=== PATIENT | male | born 1970 | race Caucasian/White ===

== ENCOUNTER 2016-05-14 14:57 | Emergency (ER) | payer OTHER ==
[~2016-05-14] VITALS: Ht 172.7 cm; Wt 82.3 kg
[~2016-05-14 14:57] MED LIST: ASPI81CH43 PO; Atorvastatin Calcium PO; CIPR-173 PO; ENA10T PO; INSLANTI SC; INSUINJ IJ; MET25T PO; Metronidazole PO
[2016-05-14 16:25] LABS: Basophils # (auto) 0 uL; Basophils % (auto) 0.3 % (0.0-2.0); Eosinophils # (auto) 0.3 uL; Eosinophils % (auto) 2.1 % (0.0-7.0); Hematocrit 39.5 % (41.0-53.0); Hemoglobin 12.7 g/dL (13.5-17.5); Lymphocytes # (auto) 2.3 uL; Lymphocytes % (auto) 17.4 % (10.0-50.0); Mean Corpuscular Hemoglobin 28.5 pg (28.0-32.0); Mean Corpuscular Hgb Conc. 32.2 g/dL (32.0-36.0); Mean Corpuscular Volume 88.6 fL (80.0-100.0); Monocytes # (auto) 0.7 uL; Monocytes % (auto) 5.4 % (0.0-12.0); Neutrophils % (auto) 74.8 % (37.0-80.0); Platelet Count (auto) 365 10^3/uL (140-450); White Blood Cell 13.3 10^3/uL (4.4-10.8)
[2016-05-14 16:46] LABS: Albumin 3.9 g/dL (3.4-5.0); Calcium 8.7 mg/dL (8.5-10.1); Potassium 4.3 mmol/L (3.5-5.1)
[2016-05-14 16:49] LABS: Bilirubin, Total 0.4 mg/dL (0.2-1.0); Total Protein 7.6 g/dL (6.4-8.2)
[2016-05-15] MEDS ORDERED: SODIUM CHLORIDE 0.9% 1,000 ML IV ONE (08:51)
[2016-05-15] MEDS ORDERED: InsuLIN REG 1unit/0.01ml Soln (100units/ml) IV ONE (09:00)
[2016-05-15] MEDS ORDERED: cefTRIAXone 1GM/50ML D5W 50 ML IV ONE (09:00)
[2016-05-15 12:23] VITALS: BP 152/77
== END 2016-05-15 11:43 | disposition home or self-care (01) ==
LOC: EEVIPCON 15:21 → ER 15:21
DX: E11.621 Type 2 diabetes mellitus with foot ulcer (principal); Z89.421 Acquired absence of other right toe(s)
CPT/HCPCS: 36415; 80053; 82962; 85025; 96365; 96375; 99284; J0696; J7030

== ENCOUNTER 2016-06-30 14:37 | Inpatient (IN) | payer SELFPAY ==
[~2016-06-30] VITALS: Ht 170.2 cm; Wt 78.6 kg
[~2016-06-30 14:37] MED LIST changes: -ASPI81CH43 PO; -Atorvastatin Calcium PO; -CIPR-173 PO; -ENA10T PO; -MET25T PO; -Metronidazole PO
[2016-06-30 16:09] LABS: INR 0.93 (0.9-1.15); Partial Thromboplastin Time 27.7 sec (22.64-33.71)
[2016-06-30 16:30] LABS: Basophils # (auto) 0.1 uL; Basophils % (auto) 0.6 % (0.0-2.0); Eosinophils # (auto) 0.4 uL; Eosinophils % (auto) 3.5 % (0.0-7.0); Hemoglobin 13.3 g/dL (13.5-17.5); Lymphocytes # (auto) 2.5 uL; Lymphocytes % (auto) 21.2 % (10.0-50.0); Mean Corpuscular Hgb Conc. 33.2 g/dL (32.0-36.0); Mean Corpuscular Volume 87.3 fL (80.0-100.0); Mean Platelet Volume 9.4 fL (7.4-10.4); Monocytes # (auto) 0.5 uL; Monocytes % (auto) 4.6 % (0.0-12.0); Neutrophils # (auto) 8.4 uL; Neutrophils % (auto) 70.1 % (37.0-80.0); Platelet Count (auto) 361 10^3/uL (140-450); Red Cell Distribution Width 11.7 % (11.6-16.0); White Blood Cell 11.9 10^3/uL (4.4-10.8)
[2016-06-30] MEDS ORDERED: SODIUM CHLORIDE 0.9% 1,000 ML IV ONE (18:30)
[2016-06-30 20:50] LABS: Albumin 3.8 g/dL (3.4-5.0); BUN/Creatinine Ratio 15.1; Potassium 4.3 mmol/L (3.5-5.1)
[2016-06-30 20:53] LABS: Bilirubin, Total 0.3 mg/dL (0.2-1.0); Total Protein 7.4 g/dL (6.4-8.2)
[2016-06-30] MEDS ORDERED: ACETAMINOPHEN 325 MG TAB PO PRN (21:45)
[2016-06-30] MEDS ORDERED: DEXTROSE (50%) 50ML SYRG IV PRN (21:45)
[2016-06-30] MEDS ORDERED: HYDROcodone-ACET 5/325MG TAB PO PRN (21:45)
[2016-06-30] MEDS ORDERED: cloNIDine HCL 0.1 MG TAB PO PRN (21:45)
[2016-06-30] MEDS ORDERED: ONDANSETRON HCL 4 MG/2 ML VIAL IV PRN (21:45)
[2016-06-30] MEDS: ENOXAPARIN SOD 30 MG/0.3 ML SYRINGE SC SCH (23:13)
[2016-06-30] MEDS: FAMOTIDINE 20 MG TAB PO SCH (23:13)
[2016-06-30] MEDS: CLINDAMYCIN 600MG IV 50 ML IV SCH (23:13)
[2016-06-30] MEDS: ACCU-CHEK COMFORT CURVE STRIP VI SCH (23:54)
[2016-06-30] MEDS: InsuLIN REG 1unit/0.01ml Soln (100units/ml) SC SCH (23:54)
[2016-07-01] VITALS (8 sets, daily range): BP systolic 122–139; BP diastolic 68–86
[2016-07-01 05:32] LABS: Basophils # (auto) 0.1 uL; Basophils % (auto) 0.6 % (0.0-2.0); Eosinophils # (auto) 0.4 uL; Eosinophils % (auto) 4.2 % (0.0-7.0); Hematocrit 36.5 % (41.0-53.0); Lymphocytes # (auto) 3.2 uL; Lymphocytes % (auto) 31.2 % (10.0-50.0); Mean Corpuscular Hemoglobin 29.1 pg (28.0-32.0); Mean Corpuscular Hgb Conc. 32.8 g/dL (32.0-36.0); Mean Corpuscular Volume 88.6 fL (80.0-100.0); Mean Platelet Volume 8.3 fL (7.4-10.4); Monocytes # (auto) 0.6 uL; Monocytes % (auto) 6.1 % (0.0-12.0); Neutrophils % (auto) 57.9 % (37.0-80.0); Platelet Count (auto) 336 10^3/uL (140-450); Red Cell Distribution Width 12.4 % (11.6-16.0); White Blood Cell 10.4 10^3/uL (4.4-10.8)
[2016-07-01] MEDS: CLINDAMYCIN 600MG IV 50 ML IV SCH ×3 (05:58→21:42)
[2016-07-01 06:04] LABS: Albumin 3.1 g/dL (3.4-5.0); BUN/Creatinine Ratio 21.4; Bilirubin, Total 0.4 mg/dL (0.2-1.0); Calcium 8.3 mg/dL (8.5-10.1); Potassium 3.7 mmol/L (3.5-5.1); Total Protein 6.3 g/dL (6.4-8.2)
[2016-07-01] MEDS: InsuLIN REG 1unit/0.01ml Soln (100units/ml) SC SCH ×4 (06:08→23:59)
[2016-07-01] MEDS: ACCU-CHEK COMFORT CURVE STRIP VI SCH ×4 (06:08→23:59)
[2016-07-01] MEDS: FAMOTIDINE 20 MG TAB PO SCH ×2 (10:00→21:42)
[2016-07-01] MEDS: ENOXAPARIN SOD 30 MG/0.3 ML SYRINGE SC SCH (10:00)
[2016-07-01] MEDS ORDERED: ceFAZolin 1GM/50ML D5W 50 ML IV ONE (11:18)
[2016-07-01] MEDS ORDERED: BUPIVACAINE 0.75% INJ 10ML MPV SDV IJ ONE (13:22)
[2016-07-01] MEDS ORDERED: MIDAZOLAM HCL 1MG/1ML-2 ML VIAL ONE (13:39)
[2016-07-01] MEDS ORDERED: PROPOFOL 10 MG/ML 20 ML IV ONE (13:39)
[2016-07-01] MEDS ORDERED: fentaNYL CITRATE 100 MCG/2 ML VL ONE (13:39)
[2016-07-01] MEDS ORDERED: cefTRIAXone 1GM/50ML D5W 50 ML IV ONE ×2 (14:15→14:20)
[2016-07-01] MEDS ORDERED: ePHEDrine SULFATE 50 MG/ML AMP IV PRN (14:15)
[2016-07-01] MEDS ORDERED: hydrALAZINE HCL 20 MG/ML VL IV PRN (14:15)
[2016-07-01] MEDS ORDERED: ONDANSETRON HCL 4 MG/2 ML VIAL IV ONE (14:15)
[2016-07-01] MEDS ORDERED: fentaNYL CITRATE 100 MCG/2 ML VL IV ONE (15:00)
[2016-07-01] MEDS: Boost Glucose Control 8 Ounces PO SCH (17:45)
[2016-07-02] MEDS: InsuLIN REG 1unit/0.01ml Soln (100units/ml) SC SCH ×4 (05:58→23:19)
[2016-07-02] MEDS: CLINDAMYCIN 600MG IV 50 ML IV SCH ×3 (05:58→22:32)
[2016-07-02] MEDS: ACCU-CHEK COMFORT CURVE STRIP VI SCH ×4 (05:58→23:11)
[2016-07-02 05:59] LABS: Basophils # (auto) 0 uL; Basophils % (auto) 0.3 % (0.0-2.0); Eosinophils # (auto) 0.5 uL; Eosinophils % (auto) 4.8 % (0.0-7.0); Hematocrit 39.6 % (41.0-53.0); Hemoglobin 12.9 g/dL (13.5-17.5); Lymphocytes # (auto) 2.2 uL; Lymphocytes % (auto) 22.4 % (10.0-50.0); Mean Corpuscular Hemoglobin 28.9 pg (28.0-32.0); Mean Corpuscular Hgb Conc. 32.6 g/dL (32.0-36.0); Mean Corpuscular Volume 88.8 fL (80.0-100.0); Mean Platelet Volume 8.5 fL (7.4-10.4); Monocytes # (auto) 0.6 uL; Monocytes % (auto) 6.5 % (0.0-12.0); Neutrophils # (auto) 6.4 uL; Platelet Count (auto) 338 10^3/uL (140-450); White Blood Cell 9.7 10^3/uL (4.4-10.8)
[2016-07-02 06:24] VITALS: BP 130/75
[2016-07-02 06:58] LABS: BUN/Creatinine Ratio 15.8; Bilirubin, Total 0.3 mg/dL (0.2-1.0); Calcium 8.5 mg/dL (8.5-10.1); Potassium 3.8 mmol/L (3.5-5.1); Total Protein 6.2 g/dL (6.4-8.2)
[2016-07-02 08:00] VITALS: BP 126/76
[2016-07-02 08:16] VITALS: BP 126/76
[2016-07-02] MEDS: cefTRIAXone 1GM/50ML D5W 50 ML IV SCH (10:36)
[2016-07-02] MEDS: FAMOTIDINE 20 MG TAB PO SCH ×2 (10:36→22:32)
[2016-07-02] MEDS: ENOXAPARIN SOD 30 MG/0.3 ML SYRINGE SC SCH (10:36)
[2016-07-02] MEDS: Boost Glucose Control 8 Ounces PO SCH ×3 (12:09→18:00)
[2016-07-02 13:13] VITALS: BP 143/79
[2016-07-02 17:16] VITALS: BP 141/84
[2016-07-02 22:00] VITALS: BP 123/77
[2016-07-02] MEDS ORDERED: INSULIN DETEMIR(LEVEMIR) 1unit/0.01ml Soln (100units/ml) SC SCH ×2 (22:00)
[2016-07-03 05:59] VITALS: BP 140/84
[2016-07-03] MEDS: InsuLIN REG 1unit/0.01ml Soln (100units/ml) SC SCH ×3 (06:00→18:01)
[2016-07-03] MEDS: ACCU-CHEK COMFORT CURVE STRIP VI SCH ×3 (06:00→17:50)
[2016-07-03] MEDS: CLINDAMYCIN 600MG IV 50 ML IV SCH ×2 (06:03→13:32)
[2016-07-03 08:00] VITALS: BP 127/81
[2016-07-03 08:57] VITALS: BP 127/81
[2016-07-03] MEDS: cefTRIAXone 1GM/50ML D5W 50 ML IV SCH (09:05)
[2016-07-03] MEDS: Boost Glucose Control 8 Ounces PO SCH ×3 (09:05→17:38)
[2016-07-03] MEDS: ENOXAPARIN SOD 30 MG/0.3 ML SYRINGE SC SCH (09:34)
[2016-07-03] MEDS: FAMOTIDINE 20 MG TAB PO SCH (09:35)
[2016-07-03 12:49] VITALS: BP 148/90
[2016-07-03] MEDS ORDERED: ENAL2.5T47 PO (15:59)
[2016-07-03] MEDS ORDERED: INSLANTI SC (15:59)
[2016-07-03] MEDS ORDERED: ASPI-266 PO (15:59)
[2016-07-03] MEDS ORDERED: METO25TA5 PO (15:59)
[2016-07-03] MEDS ORDERED: SACC250C PO (15:59)
[2016-07-03] MEDS ORDERED: ATOR20TA PO (15:59)
[2016-07-03] MEDS ORDERED: CIPR-217 PO (15:59)
[2016-07-03 16:47] VITALS: BP 148/90
[2016-07-03 17:16] VITALS: BP 132/92
== END 2016-07-03 19:45 | disposition home or self-care (01) | DRG 464 ==
LOC: ER 14:37 → WEST WING 14:38
PROVIDERS: ADMIT Internal Medicine; ATTEND Internal Medicine Pulmonary Disease
PROC: 0HRMXK3 Replacement of Right Foot Skin with Nonautologous Tissue Substitute, Full Thickness, External Approach (ICD-10-PCS; 2016-07-01)
PROC: 0HRMXK3 Replacement of Right Foot Skin with Nonautologous Tissue Substitute, Full Thickness, External Approach (ICD-10-PCS; 2016-07-01)
PROC: 0JBQ0ZZ Excision of Right Foot Subcutaneous Tissue and Fascia, Open Approach (ICD-10-PCS; principal; 2016-07-01 13:36)
DX: T87.89 Other complications of amputation stump (principal); E44.0 Moderate protein-calorie malnutrition; M86.271 Subacute osteomyelitis, right ankle and foot; L03.115 Cellulitis of right lower limb; E11.621 Type 2 diabetes mellitus with foot ulcer; E11.69 Type 2 diabetes mellitus with other specified complication; E11.65 Type 2 diabetes mellitus with hyperglycemia; L97.519 Non-pressure chronic ulcer of other part of right foot with unspecified severity; I10 Essential (primary) hypertension; E78.5 Hyperlipidemia, unspecified; I25.5 Ischemic cardiomyopathy; Y83.5 Amputation of limb(s) as the cause of abnormal reaction of the patient, or of later complication, without mention of misadventure at the time of the procedure; Y92.89 Other specified places as the place of occurrence of the external cause; Z83.3 Family history of diabetes mellitus; Z82.49 Family history of ischemic heart disease and other diseases of the circulatory system; Z89.421 Acquired absence of other right toe(s); Z85.9 Personal history of malignant neoplasm, unspecified; Z68.29 Body mass index [BMI] 29.0-29.9, adult; Z89.411 Acquired absence of right great toe
CPT/HCPCS: 36415; 71020; 73700; 80053; 82962; 83036; 85025; 85610; 85730; 87070; 87075; 87081; 87205; 93971; 96360; J0690; J0696; J1815; J2250; J2704; J3490